=== PATIENT | female | born 2005 | race Asian ===

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

== ENCOUNTER 2024-07-25 10:45 | Day surgery (SDC) | payer OTHER, SELFPAY ==
[2024-07-16 11:50] VITALS: BMI 32.3
[2024-07-25 11:49] VITALS: BP 108/75; PULSE 80; RESP 16; TEMP 36.6; O2SAT 100; BMI 31.7
[2024-07-25] MEDS: SCOPOLAMINE 1 PATCH TOP (11:56)
[2024-07-25] MEDS: ACETAMINOPHEN 325 MG TABLET 975 MG PO (11:56)
[2024-07-25] MEDS: LACTATED RINGERS 1,000 ML 42 ML IV (11:56)
--- NOTE | 2024-07-25 12:29 | P.OP_ITS ---
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 Following discussion of the material risks benefits complications and alternatives, the patient elected to proceed. Surgeon: Froylan Calixto Click Yes if Unassisted: Yes Anesthesia Type: General and Local Operative Notes Findings: Intact palate, single uvula, 3 to 4+ endophytic tonsils, 2-3+ adenoids Estimated Blood Loss (mL): 10 Procedure in detail: Following identification and confirmation of consent the patient was brought to the operating room suite and placed in the supine position. General endotracheal anesthesia was administered. A head wrap, shoulder roll, and mouth gag were placed and a red rubber catheter was inserted through the nostril and out the mouth to retract the soft palate. Partially obstructive adenoid tissue was ablated with suction electrocautery on a setting of 40, without injury to the eustachian tube orifices or choana. The left tonsil was retracted medially and suction electrocautery on a setting of 30 was used to dissect the tonsil in a subcapsular plane, followed by hemostasis with the same. This process was repeated on the right side with i dentical findings. The tonsillar fossae were superficially infiltrated bilaterally with 1% lidocaine 1 100,000 epinephrine. Mouth gag and rubber catheter were removed and the patient was extubated in the operating room and taken to the recovery room in stable condition without known complication. Complications: none Post-operative Condition: stable Disposition: same day surgery Plan for aftercare: Push fluids, alternate Tylenol and Advil every 3 hours for baseline pain control, oxycodone for breakthrough pain. Soft diet 2 full weeks, no heavy lifting or straining 2 weeks.
--- NOTE | 2024-07-25 12:29 | PM.PREOP ---
Pre-operative Note Interval Note History & Physical reviewed/Exam performed by Physician: Yes Changes to H&P: No
--- NOTE | 2024-07-25 12:54 | SUR.OPER ---
Supine on padded OR bed, head on pillow, arms secured on padded arm boards at <90 degrees abduction, legs uncrossed, safety belt at thigh, tape over blanket over lower legs.
[2024-07-25] MEDS: LIDOCAINE 1% W/EPI 10ML 20 ML INJ (12:58)
[2024-07-25 13:30] VITALS: BP 116/73; PULSE 100; RESP 20; TEMP 36.1; O2SAT 96
[2024-07-25 13:35] VITALS: BP 126/93; PULSE 95; RESP 20; TEMP 36.1; O2SAT 98
[2024-07-25 13:40] VITALS: BP 121/90; PULSE 94; RESP 20; TEMP 36.2; O2SAT 97
[2024-07-25] MEDS: HYDROMORPHONE 1 MG INJ IV (13:43)
[2024-07-25] MEDS: OXYCODONE IR 5 MG TABLET PO (13:43)
[2024-07-25] MEDS: ONDANSETRON 4 MG/2 ML INJ IV (13:44)
[2024-07-25 13:46] VITALS: BP 119/91; PULSE 96; RESP 20; TEMP 36.2; O2SAT 98
[2024-07-25 13:55] VITALS: BP 122/89; PULSE 91; RESP 18; TEMP 36.2; O2SAT 99
== END 2024-07-25 14:30 | disposition home or self-care (01) ==
PROVIDERS: Referring Provider Otolaryngology; Visit Provider Otolaryngology
PROC: (CPT 42821; principal; 2024-07-25 12:15)
DX: J35.01 Chronic tonsillitis (principal); J98.8 Other specified respiratory disorders
CPT/HCPCS: 42821; 81025; J1100; J1171; J2250; J2405; J2704; J3010